=== PATIENT | female | born 1935 | race Caucasian/White ===

== ENCOUNTER 2023-03-19 17:43 | Emergency (ER) | payer MEDICARE, BC ==
[~2023-03-19] VITALS: Ht 175.3 cm; Wt 64.0 kg
[2023-03-19 17:54] VITALS: BP 149/65; TEMP 98.5; O2SAT 96
[2023-03-19] MEDS ORDERED: TRIA37.5 (18:05)
[2023-03-19] MEDS ORDERED: NAPR220C14 PO (18:05)
[2023-03-19] MEDS ORDERED: ATEN25TA (18:05)
[2023-03-19] MEDS ORDERED: LEVO75TA4 (18:05)
[2023-03-19] MEDS ORDERED: NAPR-837 PO (19:20)
== END 2023-03-19 22:21 | disposition home or self-care (01) ==
LOC: M ED 17:43 → EDBD 17:43 → M ED 22:21
DX: S20.211A Contusion of right front wall of thorax, initial encounter (principal); W01.0XXA Fall on same level from slipping, tripping and stumbling without subsequent striking against object, initial encounter; I10 Essential (primary) hypertension; H81.4 Vertigo of central origin; E03.9 Hypothyroidism, unspecified; Z88.2 Allergy status to sulfonamides; Y92.009 Unspecified place in unspecified non-institutional (private) residence as the place of occurrence of the external cause; Z79.890 Hormone replacement therapy; Z79.899 Other long term (current) drug therapy